=== PATIENT | male | born 1990 | race American Indian/Alaskan Native ===

== ENCOUNTER 2016-08-28 12:08 | Emergency (ER) | payer MEDICAID ==
--- NOTE | 2016-08-28 13:27 | Emergency Department Report ---
HPI - General Chief Complaint: Psych Time Seen by Provider: 08/28/16 13:14 - HPI HPI: This is a 26-year-old Afro-[place] male who presents to the emergency Department via police for a mental health evaluation. The patient denies any medical history. He denies any diagnosed psychiatric history he does admit that he has been inpatient psych before. He says that he called the police because he thought that they were trying to "set me up." When asked why he would call the police when he thought that they were trying to set him up, the patient says "while I was trying to talk to the detectives." He denies any auditory or visual hallucinations or any suicidal or homicidal ideations. The chart states that the patient does have previous history of ADHD, personality disorder and paranoid schizophrenia. He admits to tobacco use but denies any illicit drug abuse. ED Past Medical Hx - Past Medical History Previous Medical History?: Yes Additional medical history: depression - Surgical History Past Surgical History?: Yes Additional Surgical History: Hernia repair - Social History Smoking Status: Current Every Day Smoker Substance Use Type: Alcohol - Medications Home Medications: Home Medications Medication Instructions Recorded Confirmed Last Taken Type No Known Home Medications [No 08/28/16 08/28/16 Unknown History Reported Home Medications] ED Review of Systems ROS: Stated complaint: 1013 Other details as noted in HPI Comment: All other systems reviewed and negative Constitutional: denies: chills, fever Eyes: denies: eye pain, eye discharge, vision change ENT: denies: ear pain, throat pain Respiratory: denies: cough, shortness of breath, wheezing Cardiovascular: denies: chest pain, palpitations Gastrointestinal: denies: abdominal pain, nausea, diarrhea Genitourinary: denies: urgency, dysuria Musculoskeletal: denies: back pain, joint swelling, arthralgia Skin: denies: rash, lesions Neurological: denies: headache, weakness, paresthesias Physical Exam - Physical Exam Vital Signs: Vital Signs 08/28/16 08/28/16 12:59 13:03 Temperature 99.7 F H Pulse Rate 113 H Respiratory 20 18 Rate Blood Pressure 140/98 O2 Sat by Pulse 100 100 Oximetry Physical Exam: GENERAL: The patient is well-developed well-nourished. HEENT: Normocephalic. Atraumatic. Extraocular motions are intact. Patient has moist mucous membranes. Pupils equal reactive to light bilaterally. NECK: Supple. Trachea is midline. CHEST/LUNGS: Clear to auscultation. There is no respiratory distress noted. HEART/CARDIOVASCULAR: Regular. There is mild tachycardia. There is no gallop rub or murmur. ABDOMEN: Abdomen is soft, nontender. Patient has normal bowel sounds. There is no abdominal distention. SKIN: Skin is warm and dry. NEURO: The patient is awake, alert, and oriented. The patient is cooperative. The patient has no focal neurologic deficits. The patient has normal speech. MUSCULOSKELETAL: There is no tenderness or deformity. There is no limitation range of motion. There is no evidence of acute injury. PSYCH: Patient is calm and cooperative but does display delusions. ED Course Vital Signs 08/28/16 08/28/16 12:59 13:03 Temperature 99.7 F H Pulse Rate 113 H Respiratory 20 18 Rate Blood Pressure 140/98 O2 Sat by Pulse 100 100 Oximetry ED Medical Decision Making - Lab Data Result diagrams: 08/28/16 13:22 08/28/16 13:22 - Radiology Data Radiology results: image reviewed interpreted by me: Chest x-ray did not show any acute process. Heart is normal shape and size. No effusions. No pneumothorax. No signs of pneumonia seen. - Medical Decision Making 26-year-old male who presents to the emergency Department via PD for a mental health evaluation. The patient displays some delusions as he says he thinks that the police are setting him up and out to get him, yet he was the one who called the police department. The patient says he was hoping to talk to some detectives. Otherwise the patient is AAO [address] and time. There are no focal, motor or sensory deficits and his cranial nerves are intact. Patient's labs are grossly unremarkable. Urine drug screen is positive for amphetamines and cocaine however. Blood alcohol levels negative. Patient has mild tachycardia and slightly elevated temperature on presentation. He was given some Tylenol. However no infectious etiology has been found as there is no urinary tract infection and chest x-ray does not show any signs of pneumonia. Most likely secondary to his drug ingestion. I feel that the patient is medically cleared for psychiatric placement. He has been made a 1013 secondary to his delusions, paranoia and psychosis. - Differential Diagnosis schizophrenia, bipolar disorder, schizoaffective, substance abuse Critical Care Time: No Critical care attestation.: If time is entered above; I have spent that time in minutes in the direct care of this critically ill patient, excluding procedure time. ED Disposition Clinical Impression: Delusions, Polysubstance abuse Psychosis Qualifiers: Psychosis type: unspecified psychosis type Qualified Code(s): F29 - Unspecified psychosis not due to a substance or known physiological condition Disposition: DC/TX PSY HOSP/PSY UNIT Is pt being admited?: No Condition: Stable Referrals: PRIMARY CARE [Primary Care Provider] - 3-5 Days Time of Disposition: 19:40
[2016-08-28 13:34] LABS: Basophils % (Auto) 0.2 % (0.0-1.8); Hematocrit 44.9 % (35.5-45.6); Hemoglobin 14.4 gm/dl (11.8-15.2); Mean Corpuscular HGB Conc 32 % (32-34); Mean Corpuscular Volume 79 fl (84-94); Platelet Count 312 K/mm3 (140-440); Red Blood Count 5.65 M/mm3 (3.65-5.03); Red Cell Distribution Width 14.8 % (13.2-15.2); White Blood Count 7.5 K/mm3 (4.5-11.0)
[2016-08-28 13:38] LABS: Mean Corpuscular Hemoglobin 26 pg (28-32)
[2016-08-28 13:51] LABS: Anion Gap 20 mmol/L; BUN/Creatinine Ratio 14.54; Blood Urea Nitrogen 16 mg/dL (9-20); Calcium 9.6 mg/dL (8.4-10.2); Carbon Dioxide 24 mmol/L (22-30); Chloride 100.2 mmol/L (98-107); Glucose 94 mg/dL (75-100); Potassium 3.5 mmol/L (3.6-5.0); Sodium 141 mmol/L (137-145)
[2016-08-28 15:18] LABS: Urine Drugs of Abuse Note Disclamer
[2016-08-28 15:25] LABS: Bilirubin,Urine NEG (Negative); Blood,Urine NEG (Negative); Ketones,Urine 20 mg/dL (Negative); Leukocyte Esterase,Urine NEG (Negative); Mucus,Urine FEW /HPF; Nitrite,Urine NEG (Negative); Protein,Urine <15 mg/dL mg/dL (Negative); Urobilinogen,Urine < 2.0 mg/dL (<2.0)
[2016-08-28] MEDS ORDERED: TYLENOL ONE (17:07)
[2016-08-28] MEDS ORDERED: TYLENOL PO ONE (17:15)
[2016-08-29 01:29] VITALS: BP 147/89
--- NOTE | 2016-08-29 07:44 | XRay Report ---
CHEST ONE VIEW INDICATION: Fever. COMPARISON: None similar. FINDINGS: Portable, single, frontal chest radiograph somewhat limited due to motion artifact, though demonstrates normal cardiomediastinal silhouette. Clear lungs. Unremarkable bones. CONCLUSION: No acute disease in the chest. Thank you for the opportunity to participate in this patient's care.
== END 2016-08-29 01:29 ==
LOC: ED 12:08
DX: F22 Delusional disorders (principal); F29 Unspecified psychosis not due to a substance or known physiological condition; F19.10 Other psychoactive substance abuse, uncomplicated; F32.9 Major depressive disorder, single episode, unspecified; F17.200 Nicotine dependence, unspecified, uncomplicated
CPT/HCPCS: 36415; 71010; 80048; 80307; 81001; 82550; 85025; 99285; G0480; 80320

== ENCOUNTER 2016-09-07 05:25 | Emergency (ER) | payer MEDICAID ==
[2016-09-07 05:46] VITALS: BP 127/93
[2016-09-07 06:07] LABS: Basophils % (Auto) 0.4 % (0.0-1.8); Hematocrit 47.3 % (35.5-45.6); Hemoglobin 15.3 gm/dl (11.8-15.2); Mean Corpuscular HGB Conc 32 % (32-34); Mean Corpuscular Volume 79 fl (84-94); Platelet Count 333 K/mm3 (140-440); Red Blood Count 5.98 M/mm3 (3.65-5.03); Red Cell Distribution Width 14.9 % (13.2-15.2); White Blood Count 4.6 K/mm3 (4.5-11.0)
[2016-09-07 06:10] LABS: Mean Corpuscular Hemoglobin 26 pg (28-32)
[2016-09-07 06:33] LABS: Blood Urea Nitrogen 20 mg/dL (9-20); Calcium 9.4 mg/dL (8.4-10.2); Carbon Dioxide 24 mmol/L (22-30); Chloride 96.3 mmol/L (98-107); Glucose 84 mg/dL (75-100); Sodium 138 mmol/L (137-145)
[2016-09-07 06:43] LABS: Anion Gap 22 mmol/L; Potassium 4.5 mmol/L (3.6-5.0)
--- NOTE | 2016-09-07 19:40 | ED Elopement Review ---
ED Pt Elopement review - Results review Lab results: Laboratory Tests 09/07/16 09/07/16 09/07/16 05:52 05:52 05:52 WBC 4.6 RBC 5.98 H Hgb 15.3 H Hct 47.3 H MCV 79 L MCH 26 L MCHC 32 RDW 14.9 Plt Count 333 Lymph % (Auto) 27.3 [place]ing % (Auto) 9.4 H Eos % (Auto) 1.0 Baso % (Auto) 0.4 Lymph # 1.2 Harding # 0.4 Eos # 0.0 Baso # 0.0 Seg Neutrophils % 61.9 Seg Neutrophils # 2.8 Sodium 138 Potassium 4.5 Chloride 96.3 L Carbon Dioxide 24 Anion Gap 22 BUN 20 Creatinine 1.0 Estimated GFR > 60 BUN/Creatinine Ratio 20.00 Glucose 84 Calcium 9.4 Plasma/Serum Alcohol < 0.01 - Call Back decision Pt Call Back Decision: No action required
== END 2016-09-07 08:26 | disposition left against medical advice (07) ==
LOC: ED 05:25
DX: F12.10 Cannabis abuse, uncomplicated (principal); R51 Headache; F60.0 Paranoid personality disorder; Z53.21 Procedure and treatment not carried out due to patient leaving prior to being seen by health care provider
CPT/HCPCS: 36415; 80048; 85025; G0480; 80320